=== PATIENT | female | born 1995 | race Caucasian/White ===

== ENCOUNTER 2022-07-18 18:22 | Emergency (ER) | payer SELFPAY ==
[2022-07-18] MEDS ORDERED: Aspirin Chewable 81 MG TAB ONE (18:41)
[2022-07-18 19:31] LABS: ALT (SGPT) 16 U/L (8-55); AST (SGOT) 12 U/L (5-34); Albumin 4.4 g/dL (3.5-5.0); Alkaline Phosphatase 61 U/L (40-110); Anion Gap 14 mmol/L (10-20); BUN (Urea Nitrogen) 8 mg/dL (7.0-18.7); Bilirubin, Total 0.5 mg/dL (0.2-1.2); Calc. Creatinine Clearance 0 mL/min (70-130); Calcium 9.7 mg/dL (7.8-10.44); Carbon Dioxide 25 mmol/L (22-29); Chloride 104 mmol/L (98-107); Estimated GFR 101; Globulin 2.6 g/dL (2.4-3.5); Glucose 104 mg/dL (70-105); Magnesium 1.7 mg/dL (1.6-2.6); Potassium 3.5 mmol/L (3.5-5.1); Sodium 139 mmol/L (136-145)
[2022-07-18] MEDS ORDERED: Sodium Chloride 0.9% 1,000 ML ONE (19:31)
[2022-07-18 20:41] LABS: Bacteria/HPF Rare-Few HPF (None Seen); Bilirubin Negative (Negative); Blood, Urine Negative (Negative); CAUTI Indications for Culture Alt mental st,lethar; Clarity Clear (Clear); Glucose, Urine (Dipstick) Negative (Negative); Ketone, Urine Negative (Negative); Leukocyte Negative (Negative); Nitrite Negative (Negative); Protein, Urine (Dipstick) Negative (Neg-Trace); RBC/HPF 0-3 HPF (0-3); Specific Gravity, Urine 1.025 (1.005-1.030); Squamous Epithelial 0-3 HPF (0-3); Urobilinogen 0.2 mg/dL (Less than 2); WBC/HPF 0-3 HPF (0-3); pH, Urine 6.5 (5.0-9.0)
[2022-07-18 20:42] LABS: Amphetamine Not Detected (NotDetected); Barbiturates Screen Not Detected (NotDetected); Benzodiazepine Screen Not Detected (NotDetected); Cocaine Metabolite Screen Not Detected (NotDetected); Methadone Not Detected (NotDetected); Methamphetamine Not Detected (NotDetected); Opiate Screen Not Detected (NotDetected); Oxycodone Screen Not Detected (NotDetected); Phencyclidine (PCP) Not Detected (NotDetected); THC/Cannabinoid Screen Not Detected (NotDetected); Tricyclic Screen Not Detected (NotDetected); Urine Culture Reflex No No
[2022-07-18 20:43] LABS: BHCG - Serum Negative (NEGATIVE); Pregs Control Background? CLEAR/WHITE (CLR/WHITE); Pregs Control Bar Appear? YES (CONTROL BAR)
[2022-07-18 20:45] LABS: #Lymphocytes 2.1 thou/uL (1.20-3.40); #Neutrophils 5.1 thou/uL (1.40-6.50); %Basophils 1.2 % (0.0-1.0); %Eosinophils 1.4 % (0.0-10.0); %Lymphocytes 26.9 % (21.0-51.0); %Monocytes 5.4 % (0.0-10.0); %Neutrophils 65.2 % (42.0-75.0); Hemoglobin 14.6 g/dL (12.0-16.0); Mean Corpuscular HGB CONC 32.5 g/dL (32.0-36.0); Mean Corpuscular Hemoglobin 26.1 pg (27.0-31.0); Mean Corpuscular Volume 80.3 fl (78.0-98.0); Mean Platelet Volume 6.1 fL (7.4-10.4); Platelet Count 343 10x3/uL (130-400); RBC Distribution Width 12.1 % (11.5-14.5); Red Blood Cell (RBC) Count 5.61 mill/uL (4.20-5.40); White Blood Cell (WBC) Count 7.8 10x3/uL (4.8-10.8)
[2022-07-18 20:46] LABS: #Basophils 0.1 thou/uL (0.0-0.2); #Eosinphils 0.1 thou/uL (0.0-0.7); #Monocytes 0.4 thou/uL (0.11-0.59)
[2022-07-18] MEDS ORDERED: Lorazepam 1 MG TAB ONE (21:07)
[2022-07-18] MEDS ORDERED: Ketorolac Tromethamine 30 MG/ML VIAL ONE (21:18)
[2022-07-18 22:06] LABS: Troponin I Less than 0.010 ng/mL (< 0.028)
== END 2022-07-18 22:07 | disposition home or self-care (01) ==
LOC: MADERS 18:22
DX: R07.89 Other chest pain (principal); E03.9 Hypothyroidism, unspecified; I10 Essential (primary) hypertension; E66.9 Obesity, unspecified; F17.290 Nicotine dependence, other tobacco product, uncomplicated; Z79.899 Other long term (current) drug therapy
CPT/HCPCS: 36415; 71045; 80053; 80306; 81001; 83735; 83880; 84484; 84703; 85025; 85379; 93005; 96374; J1885; J7050

== ENCOUNTER 2022-07-23 14:45 | Emergency (ER) | payer SELFPAY | END 2022-07-23 18:35 | disposition home or self-care (01) | LOC: MADERS 14:45 | DX: Z53.21 Procedure and treatment not carried out due to patient leaving prior to being seen by health care provider (principal) ==

== ENCOUNTER 2022-07-23 14:50 | Emergency (ER) | payer SELFPAY ==
[2022-07-23 15:53] LABS: #Basophils 0.1 thou/uL (0.0-0.2); #Lymphocytes 1.1 thou/uL (1.20-3.40); #Monocytes 0.3 thou/uL (0.11-0.59); #Neutrophils 8.9 thou/uL (1.40-6.50); %Basophils 0.7 % (0.0-1.0); %Eosinophils 0.3 % (0.0-10.0); %Lymphocytes 10.6 % (21.0-51.0); %Monocytes 3.2 % (0.0-10.0); %Neutrophils 85.3 % (42.0-75.0); Hemoglobin 13.2 g/dL (12.0-16.0); Mean Corpuscular HGB CONC 32.3 g/dL (32.0-36.0); Mean Corpuscular Hemoglobin 26.1 pg (27.0-31.0); Mean Corpuscular Volume 80.9 fl (78.0-98.0); Mean Platelet Volume 6.5 fL (7.4-10.4); Platelet Count 309 10x3/uL (130-400); RBC Distribution Width 12.1 % (11.5-14.5); Red Blood Cell (RBC) Count 5.07 mill/uL (4.20-5.40); White Blood Cell (WBC) Count 10.5 10x3/uL (4.8-10.8)
[2022-07-23 16:00] LABS: BHCG - Serum Negative (NEGATIVE); Pregs Control Background? CLEAR/WHITE (CLR/WHITE); Pregs Control Bar Appear? YES (CONTROL BAR)
[2022-07-23] MEDS ORDERED: Nitroglycerin 0.4 MG TAB 1 EACH ONE (16:00)
[2022-07-23] MEDS ORDERED: Lactated Ringer's 1,000 ML ONE (16:00)
[2022-07-23] MEDS ORDERED: hydrOXYzine 25 MG TAB ONE (16:00)
[2022-07-23] MEDS ORDERED: Ketorolac Tromethamine 30 MG/ML VIAL ONE (16:00)
[2022-07-23 16:12] LABS: ALT (SGPT) 15 U/L (8-55); AST (SGOT) 15 U/L (5-34); Albumin 4.1 g/dL (3.5-5.0); Alkaline Phosphatase 57 U/L (40-110); Anion Gap 13 mmol/L (10-20); BUN (Urea Nitrogen) 9 mg/dL (7.0-18.7); Bilirubin, Total 0.5 mg/dL (0.2-1.2); Calc. Creatinine Clearance 0 mL/min (70-130); Calcium 8.3 mg/dL (7.8-10.44); Carbon Dioxide 25 mmol/L (22-29); Chloride 106 mmol/L (98-107); Estimated GFR 96; Globulin 2.6 g/dL (2.4-3.5); Glucose 113 mg/dL (70-105); Lipase 32 U/L (8-78); Magnesium 1.9 mg/dL (1.6-2.6); Potassium 3.9 mmol/L (3.5-5.1); Protein, Total 6.7 g/dL (6.0-8.3); Sodium 140 mmol/L (136-145)
[2022-07-23 16:28] LABS: Bilirubin Negative (Negative); Blood, Urine Negative (Negative); Clarity Cloudy (Clear); Glucose, Urine (Dipstick) Negative (Negative); Ketone, Urine 15 mg/dL (Negative); Leukocyte Trace (Negative); Nitrite Negative (Negative); Protein, Urine (Dipstick) 30 mg/dL (Neg-Trace); Urobilinogen 0.2 mg/dL (Less than 2); pH, Urine 5.5 (5.0-9.0)
[2022-07-23 16:33] LABS: CAUTI Indications for Culture Dysuria,urgency,freq; RBC/HPF None Seen HPF (0-3)
[2022-07-23 16:34] LABS: Bacteria/HPF Rare-Few HPF (None Seen); Mucous/LPF 3+ LPF (<2+); Urine Culture Reflex No No
[2022-07-23] MEDS ORDERED: Nitroglycerin 2% Ointment 1 INCH/1 GM Packet ONE (17:17)
== END 2022-07-23 18:35 | disposition short-term general hospital (02) ==
LOC: MADERS 14:50
DX: R07.9 Chest pain, unspecified (principal); R55 Syncope and collapse; E03.9 Hypothyroidism, unspecified; I10 Essential (primary) hypertension; E66.9 Obesity, unspecified; F17.290 Nicotine dependence, other tobacco product, uncomplicated
CPT/HCPCS: 36415; 71045; 80053; 81001; 83690; 83735; 84443; 84484; 84703; 85025; 85379; 87480; 87510; 87660; 93005; 94760; 96361; 96374; J1885; J7120

== ENCOUNTER 2022-08-12 17:31 | Emergency (ER) | payer MEDICAID, SELFPAY | END 2022-08-12 20:13 | disposition home or self-care (01) | LOC: MADERS 17:31 | DX: M62.838 Other muscle spasm (principal); E11.9 Type 2 diabetes mellitus without complications; Z79.4 Long term (current) use of insulin; E03.9 Hypothyroidism, unspecified; I10 Essential (primary) hypertension; F17.290 Nicotine dependence, other tobacco product, uncomplicated; Z79.899 Other long term (current) drug therapy | CPT/HCPCS: 36415; 85379; 99283 ==

== ENCOUNTER 2022-09-08 10:47 | Emergency (ER) | payer SELFPAY ==
[2022-09-08 11:17] LABS: Bilirubin Negative (Negative); Blood, Urine Negative (Negative); Clarity Clear (Clear); Glucose, Urine (Dipstick) Negative (Negative); Ketone, Urine Negative (Negative); Leukocyte Negative (Negative); Nitrite Negative (Negative); Protein, Urine (Dipstick) Negative (Neg-Trace); Urobilinogen 0.2 mg/dL (Less than 2); pH, Urine 5.5 (5.0-9.0)
[2022-09-08 11:19] LABS: Specific Gravity, Urine 1.029 (1.002-1.036)
[2022-09-08 11:20] LABS: Pregnancy Test - Urine (BHCG) Negative (Negative); Pregu Control Background? CLEAR/WHITE (CLR/WHITE); Pregu Control Bar Appear? YES (CONTROL BAR); Specific Gravity 1.029 (1.002-1.036)
[2022-09-08 11:25] LABS: Bacteria/HPF Rare-Few HPF (None Seen); CAUTI Indications for Culture Dysuria,urgency,freq; Mucous/LPF 2+ LPF (<2+); RBC/HPF None Seen HPF (0-3); Urine Culture Reflex No No
[2022-09-08 20:10] LABS: Chlam.trachomatis by PCR,Urine Not Detected (NotDetected); GC N.gonorrhoeae PCR,UrineVOID Not Detected (NotDetected)
== END 2022-09-08 12:08 | disposition home or self-care (01) ==
LOC: MADERS 10:47
DX: R30.0 Dysuria (principal); N89.8 Other specified noninflammatory disorders of vagina; E03.9 Hypothyroidism, unspecified; E11.9 Type 2 diabetes mellitus without complications; Z79.4 Long term (current) use of insulin; I10 Essential (primary) hypertension; F17.290 Nicotine dependence, other tobacco product, uncomplicated
CPT/HCPCS: 81001; 81025; 87480; 87491; 87510; 87591; 87660; 99283

== ENCOUNTER 2022-09-17 19:30 | Emergency (ER) | payer SELFPAY ==
[2022-09-17] MEDS ORDERED: Bacitracin 1 PK ONE (20:04)
[2022-09-17] MEDS ORDERED: Ketorolac Tromethamine 30 MG/ML VIAL ONE (20:04)
[2022-09-17] MEDS ORDERED: TETANUS, DIPHTHERIA TOX,ADULT (TDVAX) 0.5 ML VIAL IM ONE (20:21)
== END 2022-09-17 20:30 | disposition home or self-care (01) ==
LOC: MADERS 19:30
DX: T23.242A Burn of second degree of multiple left fingers (nail), including thumb, initial encounter (principal); E11.9 Type 2 diabetes mellitus without complications; E03.9 Hypothyroidism, unspecified; I10 Essential (primary) hypertension; F17.210 Nicotine dependence, cigarettes, uncomplicated; X10.1XXA Contact with hot food, initial encounter; Z23 Encounter for immunization
CPT/HCPCS: 90714; 96372; 99283; J1885

== ENCOUNTER 2022-11-25 07:18 | Emergency (ER) | payer SELFPAY | END 2022-11-25 08:04 | disposition home or self-care (01) | LOC: MADERS 07:18 | DX: Z76.0 Encounter for issue of repeat prescription (principal); E11.9 Type 2 diabetes mellitus without complications; E03.9 Hypothyroidism, unspecified; I10 Essential (primary) hypertension; F17.290 Nicotine dependence, other tobacco product, uncomplicated; Z79.4 Long term (current) use of insulin; Z79.899 Other long term (current) drug therapy | CPT/HCPCS: 82310; 99281 ==

== ENCOUNTER 2022-12-14 07:28 | Emergency (ER) | payer BC, SELFPAY | END 2022-12-14 09:18 | disposition home or self-care (01) | LOC: MADERS 07:28 | DX: M48.02 Spinal stenosis, cervical region (principal); I10 Essential (primary) hypertension; E11.9 Type 2 diabetes mellitus without complications; E03.9 Hypothyroidism, unspecified; I45.6 Pre-excitation syndrome; F17.290 Nicotine dependence, other tobacco product, uncomplicated; Z79.4 Long term (current) use of insulin; Z79.899 Other long term (current) drug therapy | CPT/HCPCS: 72125; 93005 ==

== ENCOUNTER 2022-12-14 19:03 | Emergency (ER) | payer BC ==
[2022-12-14] MEDS ORDERED: ALPRAZolam 0.5 MG TAB ONE ×2 (19:46→20:45)
[2022-12-14 20:54] LABS: #Basophils 0.1 thou/uL (0.0-0.2); #Eosinphils 0.1 thou/uL (0.0-0.7); #Lymphocytes 1.9 thou/uL (1.20-3.40); #Monocytes 0.5 thou/uL (0.11-0.59); #Neutrophils 5.6 thou/uL (1.40-6.50); %Eosinophils 0.8 % (0.0-10.0); %Lymphocytes 23.9 % (21.0-51.0); %Monocytes 5.8 % (0.0-10.0); %Neutrophils 68.5 % (42.0-75.0); Hematocrit 44.3 % (36.0-47.0); Hemoglobin 14.2 g/dL (12.0-16.0); Mean Corpuscular Hemoglobin 25.9 pg (27.0-31.0); Mean Corpuscular Volume 80.9 fl (78.0-98.0); Mean Platelet Volume 6.1 fL (7.4-10.4); Platelet Count 359 10x3/uL (130-400); RBC Distribution Width 12.3 % (11.5-14.5); Red Blood Cell (RBC) Count 5.47 mill/uL (4.20-5.40); White Blood Cell (WBC) Count 8.1 10x3/uL (4.8-10.8)
[2022-12-14 21:07] LABS: BHCG - Serum Negative (NEGATIVE); Pregs Control Background? CLEAR/WHITE (CLR/WHITE); Pregs Control Bar Appear? YES (CONTROL BAR)
[2022-12-14 21:13] LABS: ALT (SGPT) 19 U/L (8-55); AST (SGOT) 13 U/L (5-34); Albumin 4.1 g/dL (3.5-5.0); Alkaline Phosphatase 53 U/L (40-110); Anion Gap 15 mmol/L (10-20); BUN (Urea Nitrogen) 14 mg/dL (7.0-18.7); Bilirubin, Total 0.4 mg/dL (0.2-1.2); Calc. Creatinine Clearance 0 mL/min (70-130); Calcium 8.6 mg/dL (7.8-10.44); Carbon Dioxide 22 mmol/L (22-29); Chloride 106 mmol/L (98-107); Estimated GFR 95; Globulin 2.9 g/dL (2.4-3.5); Glucose 116 mg/dL (70-105); Magnesium 1.9 mg/dL (1.6-2.6); Potassium 4.2 mmol/L (3.5-5.1); Sodium 139 mmol/L (136-145)
[2022-12-14 21:14] LABS: Troponin I Less than 0.010 ng/mL (< 0.028)
[2022-12-15 12:31] LABS: Free T4 (Free Thyroxine) 1.37 ng/dL (0.70-1.48)
== END 2022-12-14 23:50 | disposition home or self-care (01) ==
LOC: MADERS 19:03
DX: F41.9 Anxiety disorder, unspecified (principal); I10 Essential (primary) hypertension; E11.9 Type 2 diabetes mellitus without complications; E03.9 Hypothyroidism, unspecified; F17.290 Nicotine dependence, other tobacco product, uncomplicated; I45.6 Pre-excitation syndrome; Z79.4 Long term (current) use of insulin; Z79.899 Other long term (current) drug therapy
CPT/HCPCS: 36415; 36416; 71045; 80053; 83735; 83880; 84439; 84443; 84481; 84484; 84703; 85025; 93005

== ENCOUNTER 2023-01-18 12:25 | Emergency (ER) | payer BC | END 2023-01-18 13:05 | disposition left against medical advice (07) | LOC: MADERS 12:25 | DX: Z53.21 Procedure and treatment not carried out due to patient leaving prior to being seen by health care provider (principal) ==

== ENCOUNTER 2023-01-27 09:23 | Emergency (ER) | payer BC | END 2023-01-27 10:13 | disposition home or self-care (01) | LOC: MADERS 09:23 | DX: S46.812A Strain of other muscles, fascia and tendons at shoulder and upper arm level, left arm, initial encounter (principal); M54.2 Cervicalgia; E11.9 Type 2 diabetes mellitus without complications; E03.9 Hypothyroidism, unspecified; I10 Essential (primary) hypertension; F17.290 Nicotine dependence, other tobacco product, uncomplicated; Z79.899 Other long term (current) drug therapy; Z79.85 Long-term (current) use of injectable non-insulin antidiabetic drugs; X58.XXXA Exposure to other specified factors, initial encounter | CPT/HCPCS: 99283 ==

== ENCOUNTER 2023-01-31 15:59 | Emergency (ER) | payer BC ==
[2023-01-31] MEDS ORDERED: Ketorolac Tromethamine 30 MG (1 mL) VIAL ONE (16:33)
== END 2023-01-31 16:38 | disposition home or self-care (01) ==
LOC: MADERS 15:59
DX: S46.012A Strain of muscle(s) and tendon(s) of the rotator cuff of left shoulder, initial encounter (principal); I10 Essential (primary) hypertension; E11.9 Type 2 diabetes mellitus without complications; E03.9 Hypothyroidism, unspecified; F17.290 Nicotine dependence, other tobacco product, uncomplicated; Z79.4 Long term (current) use of insulin; Z79.899 Other long term (current) drug therapy
CPT/HCPCS: 93005; 96372; J1885

== ENCOUNTER 2023-02-11 12:50 | Emergency (ER) | payer BC ==
[2023-02-11] MEDS ORDERED: hydrOXYzine 25 MG TAB ONE (13:32)
== END 2023-02-11 14:10 | disposition home or self-care (01) ==
LOC: MADERS 12:50
DX: F41.9 Anxiety disorder, unspecified (principal); E11.9 Type 2 diabetes mellitus without complications; I10 Essential (primary) hypertension; E03.9 Hypothyroidism, unspecified; F17.290 Nicotine dependence, other tobacco product, uncomplicated; Z79.899 Other long term (current) drug therapy; Z79.4 Long term (current) use of insulin
CPT/HCPCS: 71045; 93005

== ENCOUNTER 2023-02-28 07:46 | Emergency (ER) | payer BC ==
[2023-02-28] MEDS ORDERED: Ketorolac Tromethamine 30 MG (1 mL) VIAL ONE (08:31)
== END 2023-02-28 08:50 | disposition home or self-care (01) ==
LOC: MADERS 07:46
DX: M54.12 Radiculopathy, cervical region (principal); E11.9 Type 2 diabetes mellitus without complications; E03.9 Hypothyroidism, unspecified; Z79.899 Other long term (current) drug therapy; Z87.891 Personal history of nicotine dependence
CPT/HCPCS: 93005; 96372; J1885

== ENCOUNTER 2023-03-01 04:31 | Emergency (ER) | payer BC ==
[2023-03-01] MEDS ORDERED: Lidocaine 4% Patch ONE (04:59)
== END 2023-03-01 05:03 | disposition home or self-care (01) ==
LOC: MADERS 04:31
DX: M54.12 Radiculopathy, cervical region (principal); E11.9 Type 2 diabetes mellitus without complications; E03.9 Hypothyroidism, unspecified; Z79.899 Other long term (current) drug therapy; Z87.891 Personal history of nicotine dependence

== ENCOUNTER 2023-03-13 21:55 | Emergency (ER) | payer BC ==
[2023-03-13] MEDS ORDERED: diphenhydrAMINE 25 MG CAP ONE (22:18)
[2023-03-13] MEDS ORDERED: Famotidine 20 MG TAB ONE (22:18)
[2023-03-13 23:14] LABS: SARS-CoV-2 NAA Rapid Test DETECTED (NotDetected)
== END 2023-03-13 23:37 | disposition home or self-care (01) ==
LOC: MADERS 21:55
DX: U07.1 COVID-19 (principal); J04.0 Acute laryngitis; E11.9 Type 2 diabetes mellitus without complications; E03.9 Hypothyroidism, unspecified; G43.909 Migraine, unspecified, not intractable, without status migrainosus; Z87.891 Personal history of nicotine dependence; Z79.899 Other long term (current) drug therapy
CPT/HCPCS: 87081; 87430; 99283; U0002

== ENCOUNTER 2023-06-10 21:25 | Emergency (ER) | payer BC ==
[2023-06-10] MEDS ORDERED: Sodium Chloride 0.9% 1,000 ML ONE (22:07)
[2023-06-10 22:14] LABS: #Eosinphils 0.1 thou/uL (0.0-0.7); #Lymphocytes 1.8 thou/uL (1.20-3.40); #Monocytes 0.6 thou/uL (0.11-0.59); %Basophils 0.4 % (0.0-1.0); %Eosinophils 0.6 % (0.0-10.0); %Lymphocytes 19.2 % (21.0-51.0); %Monocytes 5.9 % (0.0-10.0); %Neutrophils 73.9 % (42.0-75.0); Hematocrit 43.7 % (36.0-47.0); Hemoglobin 13.3 g/dL (12.0-16.0); MDiff Complete? YES; Mean Corpuscular HGB CONC 30.4 g/dL (32.0-36.0); Mean Corpuscular Hemoglobin 24.5 pg (27.0-31.0); Mean Corpuscular Volume 80.8 fl (78.0-98.0); Mean Platelet Volume 5.2 fL (7.4-10.4); Ovalocytes SLIGHT = 2-5 cells (100X) (0-1/hpf); Platelet Adequacy Comment Appears Adequate; Platelet Count 335 10x3/uL (130-400); RBC Distribution Width 12.2 % (11.5-14.5); Red Blood Cell (RBC) Count 5.41 mill/uL (4.20-5.40); White Blood Cell (WBC) Count 9.5 10x3/uL (4.8-10.8)
[2023-06-10 22:22] LABS: ALT (SGPT) 16 U/L (8-55); AST (SGOT) 14 U/L (5-34); Albumin 4.1 g/dL (3.5-5.0); Alkaline Phosphatase 58 U/L (40-110); Anion Gap 14 mmol/L (10-20); BUN (Urea Nitrogen) 10 mg/dL (7.0-18.7); Bilirubin, Total 0.4 mg/dL (0.2-1.2); Calc. Creatinine Clearance 0 mL/min (70-130); Calcium 8.7 mg/dL (7.8-10.44); Carbon Dioxide 20 mmol/L (22-29); Chloride 108 mmol/L (98-107); Estimated GFR 112; Globulin 2.9 g/dL (2.4-3.5); Glucose 160 mg/dL (70-105); Potassium 3.4 mmol/L (3.5-5.1); Sodium 139 mmol/L (136-145)
[2023-06-10 22:23] LABS: Troponin I Less than 0.010 ng/mL (< 0.028)
== END 2023-06-10 23:52 | disposition home or self-care (01) ==
LOC: MADERS 21:25
DX: R00.2 Palpitations (principal); I10 Essential (primary) hypertension; E11.9 Type 2 diabetes mellitus without complications; E03.9 Hypothyroidism, unspecified; Z87.891 Personal history of nicotine dependence; Z79.899 Other long term (current) drug therapy
CPT/HCPCS: 36415; 71046; 80053; 84484; 85025; 85379; 93005; J7050

== ENCOUNTER 2023-10-10 00:12 | Emergency (ER) | payer BC, OTHER ==
[2023-10-10] MEDS ORDERED: Ketorolac Tromethamine 30 MG (1 mL) VIAL ONE (01:00)
== END 2023-10-10 01:40 | disposition home or self-care (01) ==
LOC: MADERS 00:12
DX: S60.221A Contusion of right hand, initial encounter (principal); I10 Essential (primary) hypertension; E03.9 Hypothyroidism, unspecified; E11.9 Type 2 diabetes mellitus without complications; Z87.891 Personal history of nicotine dependence; W01.0XXA Fall on same level from slipping, tripping and stumbling without subsequent striking against object, initial encounter
CPT/HCPCS: 96372; J1885

== ENCOUNTER 2023-11-11 21:01 | Emergency (ER) | payer BC ==
[2023-11-11 21:32] LABS: Bilirubin Negative (Negative); Blood, Urine Negative (Negative); Clarity Clear (Clear); Glucose, Urine (Dipstick) Negative (Negative); Ketone, Urine Negative (Negative); Leukocyte Negative (Negative); Nitrite Negative (Negative); Protein, Urine (Dipstick) Negative (Neg-Trace); Urobilinogen 0.2 mg/dL (Less than 2)
[2023-11-11 21:35] LABS: Pregnancy Test - Urine (BHCG) Negative (Negative); Pregu Control Background? CLEAR/WHITE (CLR/WHITE); Pregu Control Bar Appear? YES (CONTROL BAR); Specific Gravity 1.026 (1.002-1.036)
[2023-11-11 21:37] LABS: CAUTI Indications for Culture Dysuria,urgency,freq; RBC/HPF None Seen HPF (0-3); Specific Gravity, Urine 1.026 (1.002-1.036); WBC/HPF None Seen HPF (0-3)
[2023-11-11 21:38] LABS: Urine Culture Reflex No No
[2023-11-11] MEDS ORDERED: Meclizine HCl 25 MG TAB ONE (22:11)
== END 2023-11-11 23:57 | disposition home or self-care (01) ==
LOC: MADERS 21:01
DX: J01.00 Acute maxillary sinusitis, unspecified (principal); R42 Dizziness and giddiness; R29.700 NIHSS score 0; I10 Essential (primary) hypertension; E11.9 Type 2 diabetes mellitus without complications; M48.00 Spinal stenosis, site unspecified; I45.6 Pre-excitation syndrome; Z87.891 Personal history of nicotine dependence; Z79.899 Other long term (current) drug therapy
CPT/HCPCS: 70450; 81001; 81025

== ENCOUNTER 2023-11-15 07:10 | Emergency (ER) | payer BC ==
[2023-11-15] MEDS ORDERED: Ketorolac Tromethamine 30 MG (1 mL) VIAL ONE (08:37)
== END 2023-11-15 09:12 | disposition home or self-care (01) ==
LOC: MADERS 07:10
DX: J02.0 Streptococcal pharyngitis (principal); E11.9 Type 2 diabetes mellitus without complications; Z87.891 Personal history of nicotine dependence
CPT/HCPCS: 87430; 96372; 99283; J1885

== ENCOUNTER 2024-02-08 15:43 | Emergency (ER) | payer BC, OTHER ==
[2024-02-08 18:15] LABS: #Basophils 0.1 thou/uL (0.0-0.2); #Eosinophils 0.1 thou/uL (0.0-0.7); #Lymphocytes 1.8 thou/uL (1.20-3.40); #Monocytes 0.6 thou/uL (0.11-0.59); #Neutrophils 6.9 thou/uL (1.40-6.50); %Basophils 1.1 % (0.0-1.0); %Eosinophils 1.2 % (0.0-10.0); %Lymphocytes 18.7 % (21.0-51.0); %Monocytes 6.7 % (0.0-10.0); %Neutrophils 72.4 % (42.0-75.0); Hematocrit 47.1 % (36.0-47.0); Hemoglobin 14.7 g/dL (12.0-16.0); Mean Corpuscular HGB CONC 31.2 g/dL (32.0-36.0); Mean Platelet Volume 5.9 fL (7.4-10.4); Platelet Count 347 10x3/uL (130-400); RBC Distribution Width 11.9 % (11.5-14.5); Red Blood Cell (RBC) Count 5.89 mill/uL (4.20-5.40); White Blood Cell (WBC) Count 9.5 10x3/uL (4.8-10.8)
[2024-02-08 18:31] LABS: Troponin I Less than 0.010 ng/mL (< 0.028)
[2024-02-08 18:32] LABS: ALT (SGPT) 30 U/L (8-55); AST (SGOT) 23 U/L (5-34); Albumin 4.1 g/dL (3.5-5.0); Alkaline Phosphatase 62 U/L (40-110); Anion Gap 13 mmol/L (10-20); BUN (Urea Nitrogen) 9 mg/dL (7.0-18.7); Bilirubin, Total 0.8 mg/dL (0.2-1.2); Calc. Creatinine Clearance 0 mL/min (70-130); Calcium 8.5 mg/dL (7.8-10.44); Carbon Dioxide 24 mmol/L (22-29); Chloride 105 mmol/L (98-107); Estimated GFR 104; Globulin 3.3 g/dL (2.4-3.5); Glucose 84 mg/dL (70-105); Potassium 3.6 mmol/L (3.5-5.1); Protein, Total 7.4 g/dL (6.0-8.3); Sodium 138 mmol/L (136-145)
[2024-02-08] MEDS ORDERED: Ketorolac Tromethamine 30 MG (1 mL) VIAL ONE (19:19)
== END 2024-02-08 19:55 | disposition home or self-care (01) ==
LOC: MADERS 15:43
DX: R07.89 Other chest pain (principal); E11.9 Type 2 diabetes mellitus without complications; E03.9 Hypothyroidism, unspecified; Z79.890 Hormone replacement therapy; Z79.85 Long-term (current) use of injectable non-insulin antidiabetic drugs; Z87.891 Personal history of nicotine dependence
CPT/HCPCS: 71045; 80053; 83880; 84484; 85025; 87081; 87428; 87430; 93005; 94760; 96374; J1885

== ENCOUNTER 2024-03-11 18:21 | Emergency (ER) | payer BC ==
[2024-03-11] MEDS ORDERED: Sodium Chloride 0.9% 1,000 ML ONE (19:20)
[2024-03-11 19:58] LABS: Band 2 % (5-11); Hematocrit 41.8 % (36.0-47.0); Hemoglobin 13.4 g/dL (12.0-16.0); Lymphocytes 18 % (21-51); MDiff Complete? YES; Mean Corpuscular HGB CONC 32.1 g/dL (32.0-36.0); Mean Corpuscular Hemoglobin 25.4 pg (27.0-31.0); Mean Corpuscular Volume 79.1 fl (78.0-98.0); Mean Platelet Volume 5.9 fL (7.4-10.4); Monocytes 5 % (0-10); Neutrophil 75 % (42-75); Platelet Count 347 10x3/uL (130-400); RBC Distribution Width 11.8 % (11.5-14.5); Red Blood Cell (RBC) Count 5.29 mill/uL (4.20-5.40); White Blood Cell (WBC) Count 12.5 10x3/uL (4.8-10.8)
[2024-03-11 20:04] LABS: Base Excess-Venous 2.1 mmol/L (-2.0 to 3.0); Bicarbonate (HCO3v) 25.6 mmol/L (22.0-28.0); CO2 Tension (PvCO2) 35.9 mmHg (42.0-51.0); Calcium, Ionized 1.08 mmol/L (1.15-1.33); Chloride 105 mmol/L (98-107); Hemoglobin - Calc 14.2 g/dL (12.0-16.0); Potassium 4.1 mmol/L (3.5-5.1); Sodium 144 mmol/L (138-145); T. Carbon Dioxide 26.7 mmol/L (22.0-28.0); vO2 Saturation-calc 99.6 % (60.0-85.0)
[2024-03-11 20:14] LABS: Troponin I Less than 0.010 ng/mL (< 0.028)
[2024-03-11] MEDS ORDERED: Propranolol 10 MG TAB ONE (20:28)
== END 2024-03-11 20:42 | disposition home or self-care (01) ==
LOC: MADERS 18:21
DX: R00.2 Palpitations (principal); R00.0 Tachycardia, unspecified; I10 Essential (primary) hypertension; Z87.891 Personal history of nicotine dependence
CPT/HCPCS: 71046; 82330; 82435; 82803; 84132; 84295; 84484; 85014; 85025; 93005; J7030

== ENCOUNTER 2024-10-20 11:28 | Emergency (ER) | payer BC | END 2024-10-20 13:20 | disposition home or self-care (01) | LOC: MADERS 11:28 | DX: J02.9 Acute pharyngitis, unspecified (principal); R11.2 Nausea with vomiting, unspecified; E11.9 Type 2 diabetes mellitus without complications; Z79.4 Long term (current) use of insulin | CPT/HCPCS: 87081; 87426; 87430; 99283; Q0162 ==

== ENCOUNTER 2024-10-21 09:01 | Emergency (ER) | payer BC ==
[~2024-10-21 09:01] MED LIST: Iopamidol 370 76% 100 ML VIAL ONE
[2024-10-21] MEDS ORDERED: Ketorolac Tromethamine 30 MG (1 mL) VIAL ONE (09:34)
[2024-10-21] MEDS ORDERED: diphenhydrAMINE 50 MG/ML VIAL ONE (09:34)
[2024-10-21 09:54] LABS: #Basophils 0.1 thou/uL (0.0-0.2); #Eosinophils 0.2 thou/uL (0.0-0.7); #Lymphocytes 1.4 thou/uL (1.20-3.40); #Monocytes 0.6 thou/uL (0.11-0.59); #Neutrophils 9.0 thou/uL (1.40-6.50); %Basophils 0.9 % (0.0-1.0); %Eosinophils 1.7 % (0.0-10.0); %Lymphocytes 12.0 % (21.0-51.0); %Monocytes 5.3 % (0.0-10.0); %Neutrophils 80.1 % (42.0-75.0); Hematocrit 48.3 % (36.0-47.0); Hemoglobin 15.6 g/dL (12.0-16.0); Mean Corpuscular Hemoglobin 25.4 pg (27.0-31.0); Mean Corpuscular Volume 78.6 fl (78.0-98.0); Platelet Count 359 10x3/uL (130-400); Red Blood Cell (RBC) Count 6.15 mill/uL (4.20-5.40); White Blood Cell (WBC) Count 11.2 10x3/uL (4.8-10.8)
[2024-10-21 10:15] LABS: ALT (SGPT) 17 U/L (Less than 34); AST (SGOT) 18 U/L (11-34); Albumin 4.4 g/dL (3.1-4.5); Alkaline Phosphatase 59 U/L (40-110); Anion Gap 17 mmol/L (10-20); BUN (Urea Nitrogen) 15 mg/dL (7.0-18.7); Bilirubin, Total 1.1 mg/dL (0.3-1.2); Calc. Creatinine Clearance 0 mL/min (70-130); Calcium 8.6 mg/dL (7.8-10.44); Carbon Dioxide 21 mmol/L (22-29); Chloride 104 mmol/L (98-107); Globulin 3.4 g/dL (2.4-3.5); Glucose 93 mg/dL (70-105); Potassium 3.9 mmol/L (3.5-5.1); Sodium 138 mmol/L (136-145)
[2024-10-21] MEDS ORDERED: prednisoLONE 15 MG/5 ML UDCUP ONE (11:13)
== END 2024-10-21 11:33 | disposition home or self-care (01) ==
LOC: MADERS 09:01
DX: J02.8 Acute pharyngitis due to other specified organisms (principal); B96.89 Other specified bacterial agents as the cause of diseases classified elsewhere; E11.9 Type 2 diabetes mellitus without complications
CPT/HCPCS: 70492; 80053; 83605; 85025; 86140; 96365; 96375; J1200; J1885; J3490; J7510; Q9967

== ENCOUNTER 2025-01-04 23:05 | Emergency (ER) | payer BC ==
[2025-01-04 23:38] LABS: Hematocrit 40.3 % (36.0-47.0); Hemoglobin 12.4 g/dL (12.0-16.0); MDiff Complete? YES; Mean Corpuscular Hemoglobin 25.1 pg (27.0-31.0); Mean Corpuscular Volume 81.4 fl (78.0-98.0); Platelet Count 279 10x3/uL (130-400); Red Blood Cell (RBC) Count 4.95 mill/uL (4.20-5.40); White Blood Cell (WBC) Count 8.3 10x3/uL (4.8-10.8)
[2025-01-04 23:52] LABS: ALT (SGPT) 11 U/L (Less than 34); AST (SGOT) 11 U/L (11-34); Albumin 3.6 g/dL (3.1-4.5); Alkaline Phosphatase 54 U/L (40-110); Anion Gap 15 mmol/L (10-20); BUN (Urea Nitrogen) 9 mg/dL (7.0-18.7); Bilirubin, Total 0.4 mg/dL (0.3-1.2); Calc. Creatinine Clearance 0 mL/min (70-130); Calcium 7.9 mg/dL (7.8-10.44); Carbon Dioxide 23 mmol/L (22-29); Chloride 104 mmol/L (98-107); Globulin 2.7 g/dL (2.4-3.5); Glucose 106 mg/dL (70-105); Potassium 3.4 mmol/L (3.5-5.1); Sodium 139 mmol/L (136-145)
[2025-01-04 23:53] LABS: Troponin I 0.011 ng/mL (< 0.028)
== END 2025-01-05 00:19 | disposition home or self-care (01) ==
LOC: MADERS 23:05
DX: R07.89 Other chest pain (principal); F41.9 Anxiety disorder, unspecified; E87.6 Hypokalemia
CPT/HCPCS: 36415; 71045; 80053; 84484; 85025; 93005

== ENCOUNTER 2025-01-09 09:28 | Emergency (ER) | payer BC ==
[2025-01-09] MEDS ORDERED: Ondansetron PF 4 MG/2 ML Vial ONE (10:18)
[2025-01-09 10:29] LABS: BHCG - Serum Negative (NEGATIVE); Pregs Control Background? CLEAR/WHITE (CLR/WHITE); Pregs Control Bar Appear? YES (CONTROL BAR)
[2025-01-09 10:31] LABS: INR-International Normal Ratio 1.0; Prothrombin Time 13.0 sec (12.0-14.7)
[2025-01-09 10:32] LABS: PTT 31.8 sec (22.9-36.1)
[2025-01-09 10:33] LABS: Hematocrit 44.4 % (36.0-47.0); Hemoglobin 13.8 g/dL (12.0-16.0); Mean Corpuscular Hemoglobin 24.5 pg (27.0-31.0); Mean Corpuscular Volume 79.0 fl (78.0-98.0); Platelet Count 287 10x3/uL (130-400); Red Blood Cell (RBC) Count 5.62 mill/uL (4.20-5.40); White Blood Cell (WBC) Count 5.9 10x3/uL (4.8-10.8)
[2025-01-09 10:35] LABS: ALT (SGPT) 15 U/L (Less than 34); AST (SGOT) 16 U/L (11-34); Albumin 3.9 g/dL (3.1-4.5); Alkaline Phosphatase 75 U/L (40-110); Anion Gap 17 mmol/L (10-20); BUN (Urea Nitrogen) 9 mg/dL (7.0-18.7); Bilirubin, Total 0.4 mg/dL (0.3-1.2); Calc. Creatinine Clearance 0 mL/min (70-130); Calcium 8.2 mg/dL (7.8-10.44); Carbon Dioxide 22 mmol/L (22-29); Chloride 103 mmol/L (98-107); Globulin 3.0 g/dL (2.4-3.5); Glucose 96 mg/dL (70-105); Potassium 3.9 mmol/L (3.5-5.1); Sodium 138 mmol/L (136-145)
[2025-01-09 10:37] LABS: MDiff Complete? YES; Manual Diff?? YES
[2025-01-09 10:40] LABS: Platelet Adequacy Comment Appears Adequate
== END 2025-01-09 11:07 | disposition home or self-care (01) ==
LOC: MADERS 09:28
DX: R50.9 Fever, unspecified (principal); J06.9 Acute upper respiratory infection, unspecified; E11.9 Type 2 diabetes mellitus without complications; E03.9 Hypothyroidism, unspecified
CPT/HCPCS: 71046; 80053; 83605; 84703; 85025; 85610; 85730; 87040; 87428; 93005; 94760; 96374; J2405; J7120

== ENCOUNTER 2025-01-20 09:29 | Emergency (ER) | payer BC ==
[2025-01-20 10:17] LABS: BHCG - Serum Negative (NEGATIVE); Pregs Control Background? CLEAR/WHITE (CLR/WHITE); Pregs Control Bar Appear? YES (CONTROL BAR)
[2025-01-20 10:18] LABS: #Basophils 0.1 thou/uL (0.0-0.2); #Eosinophils 0.1 thou/uL (0.0-0.7); #Lymphocytes 2.1 thou/uL (1.20-3.40); #Monocytes 0.5 thou/uL (0.11-0.59); #Neutrophils 6.6 thou/uL (1.40-6.50); %Basophils 0.9 % (0.0-1.0); %Eosinophils 0.6 % (0.0-10.0); %Lymphocytes 22.4 % (21.0-51.0); %Monocytes 5.3 % (0.0-10.0); %Neutrophils 70.8 % (42.0-75.0); Hematocrit 42.9 % (36.0-47.0); Hemoglobin 13.6 g/dL (12.0-16.0); Mean Corpuscular Hemoglobin 24.9 pg (27.0-31.0); Mean Corpuscular Volume 78.6 fl (78.0-98.0); Platelet Count 402 10x3/uL (130-400); Red Blood Cell (RBC) Count 5.46 mill/uL (4.20-5.40); White Blood Cell (WBC) Count 9.3 10x3/uL (4.8-10.8)
[2025-01-20 10:29] LABS: ALT (SGPT) 13 U/L (Less than 34); AST (SGOT) 17 U/L (11-34); Albumin 4.0 g/dL (3.1-4.5); Alkaline Phosphatase 63 U/L (40-110); Anion Gap 17 mmol/L (10-20); BUN (Urea Nitrogen) 11 mg/dL (7.0-18.7); Bilirubin, Total 0.5 mg/dL (0.3-1.2); Calc. Creatinine Clearance 0 mL/min (70-130); Calcium 8.7 mg/dL (7.8-10.44); Carbon Dioxide 20 mmol/L (22-29); Chloride 106 mmol/L (98-107); Globulin 3.0 g/dL (2.4-3.5); Glucose 103 mg/dL (70-105); Potassium 3.8 mmol/L (3.5-5.1); Sodium 139 mmol/L (136-145)
[2025-01-20 10:30] LABS: Troponin I Less than 0.010 ng/mL (< 0.028)
[2025-01-20] MEDS ORDERED: Famotidine/PF 20 mg/2ml Vial ONE (11:16)
[2025-01-20] MEDS ORDERED: diphenhydrAMINE 50 MG/ML VIAL ONE (11:16)
== END 2025-01-20 13:15 | disposition home or self-care (01) ==
LOC: MADERS 09:29
DX: R07.9 Chest pain, unspecified (principal); E11.9 Type 2 diabetes mellitus without complications
CPT/HCPCS: 71045; 71275; 80053; 83690; 84484; 84703; 85025; 85379; 93005; 96374; 96375; J1200; J1308; J2919; Q9967